=== PATIENT | male | born 1985 | race African-American/Black ===

== ENCOUNTER 2016-05-10 10:51 | Emergency (ER) | payer OTHER ==
[~2016-05-10] VITALS: Ht 172.7 cm; Wt 63.5 kg
[2016-05-10] MEDS ORDERED: CIPRO500 M1 PO (12:49)
[2016-05-10] MEDS ORDERED: NORCO 5-325 TA1 EACH PO (12:49)
[2016-05-10] MEDS ORDERED: FLAGYL500 MG PO (12:49)
[2016-05-10 13:01] VITALS: BP 113/79
== END 2016-05-10 13:10 | disposition home or self-care (01) ==
LOC: ER 10:51
DX: K57.92 Diverticulitis of intestine, part unspecified, without perforation or abscess without bleeding (principal)